=== PATIENT | female | born 1940 | race Two or more races ===

== ENCOUNTER 2025-01-27 10:26 | Emergency (ER) | payer OTHER ==
[~2025-01-27] VITALS: Ht 162.6 cm; Wt 77.1 kg
[2025-01-27 11:01] VITALS: BP 152/76; O2SAT 96
[2025-01-27] MEDS ORDERED: SYNTHROID112 MCG PO (11:04)
[2025-01-27] MEDS ORDERED: FENOFIBRATE50 MG PO (11:05)
[2025-01-27] MEDS ORDERED: TOPROL XL50 M1 PO (11:05)
[2025-01-27] MEDS ORDERED: CITALOPRAM HBR20 MG PO (11:05)
[2025-01-27] MEDS ORDERED: PEPCID AC20 MG PO (11:06)
[2025-01-27] MEDS ORDERED: ONDANSETRON HCL 2 MG/ML VIAL IV STA (11:33)
[2025-01-27] MEDS ORDERED: FAMOTIDINE/PF 20 MG/2 ML VIAL IV PUSH STA (11:33)
[2025-01-27] MEDS ORDERED: 0.9 % SODIUM CHLORIDE 1,000 ML IV STA (11:34)
[2025-01-27] MEDS ORDERED: LACTOBACILLUS ACIDOPHILUS 1 CAP CAP PO STA (11:35)
[2025-01-27] MEDS ORDERED: ONDANSETRON HCL 2 MG/ML VIAL ONE (11:42)
[2025-01-27] MEDS ORDERED: LACTOBACILLUS ACIDOPHILUS 1 CAP CAP PO ONE (11:42)
[2025-01-27] MEDS ORDERED: FAMOTIDINE/PF 20 MG/2 ML VIAL ONE (11:42)
[2025-01-27 12:55] LABS: BASO % 0.7 % (0.1-1.2); EOS # 0.32 (0.04-0.54); EOS % 3.7 % (0.7-7.0); LYMPH # 1.71 (1.18-3.74); LYMPH % 20.0 % (19.3-53.1); MEAN PLATELET VOLUME 12.70 fl (9.4-12.4); MONO # 0.97 (0.24-0.82); MONO % 11.4 % (4.7-12.5); NEUT # 5.47 (1.56-6.13); NEUT % 64.1 % (34.0-71.1); RED CELL DISTRIBUTION WIDTH 12.8 % (11.6-14.4)
[2025-01-27 13:47] LABS: ALT/SGPT 27.0 U/L (12-78); AST/SGOT 33.0 U/L (15-37); BILIRUBIN TOTAL 0.43 mg/dL (0.3-1.2); BUN CREA RATIO 19.0 (7.0-25.0); CREATININE SERUM 1.05 mg/dL (0.55-1.02); GFR 50.05; GLOBULINA 3.7 G/DL (2.4-3.5); GLUCOSE FASTING 99.0 mg/dL (65-100); OSMOLALITY SERUM 286.0 MOSM/KG (275-295)
== END 2025-01-27 15:55 | disposition home or self-care (01) ==
LOC: ER 10:26
PROVIDERS: General Practice
DX: R11.2 Nausea with vomiting, unspecified (principal); A08.8 Other specified intestinal infections; R11.10 Vomiting, unspecified
CPT/HCPCS: 36415; 74022; 96365; 96366; 99283; J2405; J3490; J7030